=== PATIENT | male | born 1995 | race Caucasian/White ===

== ENCOUNTER 2023-12-20 17:58 | Emergency (ER) | payer BC, SELFPAY ==
[2023-12-20 18:03] VITALS: BP 166/105
--- NOTE | 2023-12-20 19:34 | ED.GENMED ---
History of Present Illness
General
Chief Complaint: Musculo-Skeletal Complaint
Time Seen by Provider: 12/20/23 18:15
History of Present Illness
History of Present Illness:
TIME OF INITIAL ENCOUNTER: 7 PM
HPI: Patient was at a friend's house and the handle to a winch broke off then a large heavy object came down on his left thenar eminence. He is right-handed. He denies any other injury but there is a small laceration over the affected area.
However bleeding is now controlled.
EXAM:
GENERAL: Well appearing in no distress
HEENT: Moist oral mucosa
NEUROLOGIC: Excellent strength all extremities, no obvious coordination deficits
PSYCHIATRIC: Appropriate mental status, normal insight and judgement
EXTREMITIES: There is some mild soft tissue swelling to the left thenar eminence with a subcentimeter triangular shaped skin avulsion
SKIN: No rash, no lesions
NUMBER AND COMPLEXITY OF PROBLEMS ADDRESSED AT THE ENCOUNTER
� Chronic conditions affecting care: No past medical history
� Acute Exacerbation and/or Progression of Chronic Illness: This is an acute problem
� Differential Diagnosis includes: Soft tissue contusion, laceration
AMOUNT AND/OR COMPLEXITY OF DATA TO BE REVIEWED AND ANALYZED
� I performed an independent evaluation of and my interpretation is:
EKG:
CT:
X-rays: I personally reviewed x-rays and agree with radiologist interpretation that there is no acute fracture; I also notified the patient of questionable chronic appearing avulsion injury to the second digit the patient has no
symptoms at that location
Laboratory Studies:
Other:
� Review of other/old records: No old records available for review in [facility]
� Clinical information was obtained by an independent historian: None needed
� Prescriptions/Medications Considered but not given:
� Further testing considered but not performed:
RISK OF COMPLICATIONS AND/OR MORBIDITY OR MORTALITY OF PATIENT MANAGEMENT
� Social determinants of health affecting care: Lives at home
� Discussion with other providers:
� Escalation of care including admission/observation vs risk of discharge considered: I personally irrigated the wound, placed antibiotic ointment and then a Band-Aid. No evidence for fracture.
ANY OTHER UPDATES:
Phy Exam
Physical Exam
Physical Exam:
See HPI
Course
Orders/Labs/Results
Orders:
Orders
12/20/23 18:07
Hand, Left 3 View [CR Hand - Left Min 3 Views] Urgent
Comment:
Reason For Exam: pain
Vital Signs
Initial and Last Documented VS:
Initial Vital Signs
Temp Pulse Resp BP Pulse Ox
98 F 104 20 166/105 99
12/20/23 18:03 12/20/23 18:03 12/20/23 18:03 12/20/23 18:03 12/20/23 18:03
Last Documented Vital Signs
Temp Pulse Resp BP Pulse Ox
98 F 104 20 166/105 99
12/20/23 18:03 12/20/23 18:03 12/20/23 18:03 12/20/23 18:03 12/20/23 18:03
*Critical Care Note
Total Time (30-74mins, 75-104mins- exclusive of procedures): Not Applicable
ED Attending Note
-
Portions of this chart may have been created with voice recognition software.� Occasional wrong word or��sound alike� substitutions may have occurred due to the inherent limitations of voice recognition software.
Discharge Plan
Departure
Patient Disposition: Home (Routine Discharge)
Date of Disposition: 12/20/23
Time of Disposition: 19:22
Patient with high blood pressure during this ER visit?: Yes
Discharge Problem:
Contusion of soft tissue
Instructions: Contusion (DC), BLOOD PRESSURE
Prescriptions:
No Action
dextroamphetamine-amphetamine [Adderall XR] 20 mg Capsule,Extended Release 24hr
20 mg PO DAILY
Referrals:
Juni Collins MD [Family Provider] -
Activity Restrictions/Additional Instructions:
X-ray shows no sign of fracture. I cleaned the wound and placed antibiotic ointment. Return here if worse or any other concerns.
Interventions
Interventions:
*Risk Screen - Suicide Last Done: 12/20/23 18:03
*Neglect/Abuse Screening Last Done: 12/20/23 19:19
ED-Musculoskeletal Assessment Last Done: 12/20/23 18:49
Discharge Date and Time
Print Language: CITIZ[place]
[2023-12-20 19:38] VITALS: BP 134/93
== END 2023-12-20 19:40 | disposition home or self-care (01) ==
LOC: EMR 17:58
PROVIDERS: EMERGENCY PHYSICIAN Emergency Medicine; FAMILY PHYSICIAN Family Medicine
DX: S60.222A Contusion of left hand, initial encounter (principal); X58.XXXA Exposure to other specified factors, initial encounter
CPT/HCPCS: 99283; 73130